=== PATIENT | female | born 1995 | race Caucasian/White ===

== ENCOUNTER → 2020-07-29 14:05 | Outpatient (BNVA) | payer MEDICAID, SELFPAY | PROVIDERS: PCP Internal Medicine; Visit Provider Advanced Practice Midwife | DX: Z30.431 Encounter for routine checking of intrauterine contraceptive device (principal); E66.9 Obesity, unspecified; Z68.34 Body mass index [BMI] 34.0-34.9, adult | CPT/HCPCS: 99212 ==

== ENCOUNTER → 2020-10-07 11:16 | Outpatient (BNVA) | payer SELFPAY | PROVIDERS: PCP Internal Medicine; Visit Provider Advanced Practice Midwife | DX: Z30.431 Encounter for routine checking of intrauterine contraceptive device (principal) | CPT/HCPCS: 99212 ==

== ENCOUNTER 2021-06-09 11:02 | Outpatient (REF) | payer MEDICAID, SELFPAY ==
--- NOTE | ~2021-06-09 | US_ITS ---
EXAMINATION:US pelvic and transvaginal CLINICAL INFORMATION: Reason for Exam IRREG. MENSES COMPARISON: No priors available. LMP: March 1921 FINDINGS: UTERUS: The uterus is anteverted. Size: 7.8 x 3.4 x 5.9 cm. Uterine mass: There is no uterine mass. Cervix: Grossly unremarkable. Endometrium: No ultrasound evidence of endometrial lesion. endometrial thickness measures 0.4 cm I[address] is in place. ADNEXA: Normal Right ovary: Normal in size. Left ovary: Normal in size. There is a cyst in the left ovary 4.2 x 4.2 x 3.8 cm, this is a simple cyst. Doppler exam: Normal Doppler flow identified in both ovaries. FREE FLUID: Trace amount of free fluid. OTHER FINDINGS: None US/US pelvic and transvaginal IMPRESSION: Simple cyst in the left ovary 4.2 cm. Follow-up is not required. IUD found in the endometrium. In women who undergo transvaginal ultrasound (TVUS) imaging of adnexal masses, benign ovarian and other adnexal cysts are commonly detected, leading to follow-up sonographic evaluation and, often, patient anxiety. In 2010 the Society of [employer] in Ultras[employer] convened a panel of gynecologists, radiologists, and pathologists to develop a consensus statement encompassing characteristic imaging findings for various adnexal cysts as well as follow-up recommendations. Highlights of the statement are as follows: Simple cysts (reproductive age) * Follicles <3 cm in diameter are considered normal. * Cysts <5 cm: follow-up not required. * Cysts >5 to <7 cm: annual follow-up recommended. Simple cysts (postmenopausal) * Cysts <1 cm are considered clinically unimportant. * Simple cysts of any size are highly likely to be benign, but annual sonographic follow-up of cysts >1 cm is reasonable. Simple cysts >7 cm (any age) * Further imaging (e.g., magnetic resonance imaging) or surgical evaluation should be considered. Thin-walled cysts with single thin septation or focal calcification in [place] * Follow-up similar to that for simple cysts based on size and menopausal status. Hemorrhagic cysts (reproductive age) * Cysts <5 cm: No follow-up needed. * Cysts >5 cm: Follow-up in 6 to 12 weeks to ensure resolution. Hemorrhagic cysts (early postmenopause) * Any size: Follow-up in 6 to 12 weeks to ensure resolution. Hemorrhagic cysts (later postmenopausal years) * Any size: Consider surgical evaluation. Endometriomae (any age) * Follow-up in 6 to 12 weeks; if not surgically resected at that time, follow annually. Dermoids (any age) * If not surgically resected, follow annually to ensure stability. Hydrosalpinxes or peritoneal cysts (any age) * Individualized follow-up as clinically indicated. Cysts with characteristics suspicious for malignancy (any age) * If thick (>3 mm) irregular septations or nodule with Doppler-detected blood flow, consider surgical evaluation.
== END 2021-06-09 11:03 | disposition home or self-care (01) ==
LOC: HO.US 11:02
PROVIDERS: Visit Provider Advanced Practice Midwife
DX: Z30.431 Encounter for routine checking of intrauterine contraceptive device (principal); N92.1 Excessive and frequent menstruation with irregular cycle
CPT/HCPCS: 76830; 76856

== ENCOUNTER → 2021-07-14 13:46 | Outpatient (BNVA) | payer MEDICAID, SELFPAY | PROVIDERS: Visit Provider Obstetrics & Gynecology | DX: Z30.09 Encounter for other general counseling and advice on contraception (principal) | CPT/HCPCS: 99212 ==

== ENCOUNTER 2022-07-26 14:30 | Outpatient (REF) | payer MEDICAID, SELFPAY ==
[2022-07-26 18:43] LABS: CT PCR NOT DETECTED (Not Detect.); NG PCR NOT DETECTED (Not Detect.)
[2022-07-27 10:31] LABS: BV Int Neg Control Negative (Negative); BV Int Pos Control Positive (Positive)
== END 2022-07-26 14:31 | disposition home or self-care (01) ==
LOC: HO.LNP 14:30
PROVIDERS: Visit Provider Advanced Practice Midwife
DX: Z30.431 Encounter for routine checking of intrauterine contraceptive device (principal); N94.10 Unspecified dyspareunia; Z20.2 Contact with and (suspected) exposure to infections with a predominantly sexual mode of transmission
CPT/HCPCS: 87480; 87491; 87510; 87591; 87660; 99212

== ENCOUNTER 2022-08-27 13:57 | Outpatient (REF) | payer MEDICAID, SELFPAY ==
--- NOTE | ~2022-08-27 | US_ITS ---
EXAMINATION: US PELVIS CLINICAL INFORMATION: Unspecified dyspareunia. COMPARISON: None TECHNIQUE: Ultrasound of the pelvis is performed using both transabdominal and transvaginal transducers along with Doppler. Transvaginal imaging is performed due to inadequate visualization transabdominally. FINDINGS: Uterus: The uterus is anteverted, anteflexed and measures 8.4 cm in length, 4.1 cm in AP and 5.9 cm in transverse dimension. The double wall endometrial thickness is 0.7 cm. There is an IUD well located within the endometrial canal. The uterus is smooth in contour and has normal myometrial echogenicity. No visible fibroid. There are small anechoic nabothian cysts seen in cervix. Adnexa: Both ovaries are visualized. There is normal color flow to the adnexa. There is no ovarian torsion. There is no pelvic ascites or fluid collection. Right ovary measures 4.3 x 1.9 x 1.8 cm and volume 7.7 mL. It appears unremarkable. Previously right ovary measured 4.2 x 1.5 x 1.7 cm. Left ovary measures 4.1 x 2.4 x 2.3 cm and volume 11.9 mL. There are 2 anechoic cysts. A simple cyst measuring 2.1 x 2.1 x 2.2 cm and a corpus luteal cyst measuring 1.6 x 1.7 x 2.0 cm. US/US pelvic and transvaginal IMPRESSION: Unremarkable uterus. There is an IUD well located within the endometrial canal. Simple cyst and a corpus luteal cyst left ovary. The right ovary is unremarkable. There are small nabothian cysts in the cervix.
== END 2022-08-27 13:58 | disposition home or self-care (01) ==
LOC: HO.US 13:57
PROVIDERS: PCP Internal Medicine; Visit Provider Advanced Practice Midwife
DX: N94.10 Unspecified dyspareunia (principal); Z30.431 Encounter for routine checking of intrauterine contraceptive device
CPT/HCPCS: 76830; 76856

== ENCOUNTER → 2022-09-29 11:41 | Outpatient (BNVA) | payer MEDICAID, SELFPAY | PROVIDERS: Visit Provider Advanced Practice Midwife | DX: Z71.2 Person consulting for explanation of examination or test findings (principal); N94.10 Unspecified dyspareunia | CPT/HCPCS: 99212 ==